=== PATIENT | female | born 1975 | race Caucasian/White ===

== ENCOUNTER → 2021-09-16 09:54 | Outpatient (CLI) | payer OTHER, SELFPAY ==
--- NOTE | ~2021-09-16 | US_ITS ---
EXAMINATION: US transvaginal DATE: 09/16/2021 10:33 INDICATION: Ovarian cysts Comparison:Ultrasound dated 04/07/2019 TECHNIQUE: Multiple transabdominal and endovaginal sonographic images of the pelvis performed. FINDINGS: The uterus measures 8.5 x 3.4 x 4 cm. The endometrial complex measures 3.5 mm. The right ovary measures 1.7 x 1 x 1 cm and the left ovary measures 1.7 x 1.1 x 1.6 cm. There are sm all follicles in each ovary. Normal doppler signal in both ovaries. There is no free fluid in the pelvis. There are no abnormal masses seen on either side. IMPRESSION: 1. Unremarkable pelvic ultrasound. Reviewed, dictated and finalized at location A.
--- NOTE | ~2021-09-16 | MM_ITS ---
EXAMINATION: MM screening [facility] BI w brenda HISTORY: Screening TECHNIQUE: Craniocaudal and mediolateral oblique 3-D tomosynthesis images were obtained and synthetic 2-D images were generated. CAD analysis was submitted and interpreted. COMPARISON: No prior mammogram is available for comparison at this institution. BREAST PARENCHYMAL COMPOSITION: The breasts are extremely dense, which lowers the sensitivity of mamm ography FINDINGS: There are multiple bilateral breast masses scattered throughout both breasts which are obsc ured by dense fibroglandular tissue. There are scattered benign calcifications. No suspicious archite ctural distortion. IMPRESSION: 1. Multiple bilateral breast masses obscured by dense fibroglandular tissue. 2. Recommend bilateral complete breast ultrasound. BI-RADS Category 0: Incomplete: Needs additional imaging evaluation. Reviewed, dictated and finalized at location A.
== END ==
PROVIDERS: PCP Internal Medicine; Visit Provider Nurse Practitioner
DX: N83.202 Unspecified ovarian cyst, left side (principal); Z12.31 Encounter for screening mammogram for malignant neoplasm of breast; R92.8 Other abnormal and inconclusive findings on diagnostic imaging of breast
CPT/HCPCS: 76830; 77063; 77067

== ENCOUNTER 2021-09-23 14:14 | Outpatient (CLI) | payer OTHER, SELFPAY ==
--- NOTE | ~2021-09-23 | US_ITS ---
US breast BI complete DATE: 09/23/2021 14:45 INDICATION: Multiple bilateral breast masses reported on 09/16/2021 bilateral screening mammogram TECHNIQUE: Real-time imaging and color flow imaging of both breasts including all 4 quadrants and sub areolar areas COMPARISON: 09/16/2021 bilateral screening mammogram FINDINGS: Multiple scattered bilateral simple and complicated cysts are noted, the largest on the rig ht situated at 9:00 5 cm from the nipple, measuring 2.4 x 1.2 x 2.7 cm, with no internal echoes, with through transmission and posterior enhancement. The largest on the left is situated at 1:00 3 cm fro m the nipple, measuring up to 1 x 2.6 x 2.3 cm, with no internal echoes, with through transmission po sterior enhancement. Scattered bilateral smaller cysts are noted. . There are some complicated cysts or circumscribed hypoechoic lesions. Hypoechoic lesions include: Right breast 12:00 2 cm from the nipple, measuring 6 x 5.5 x 8, without internal vascularity or poste rior shadowing Right breast 6:00 3 cm from nipple: 4.8 x 3.8 x 4.2 mm hypoechoic lesion with through transmission an d posterior enhancement, no internal vascularity Left breast 12:00 2 cm from nipple: 8.3 x 8.1 x 6.3 mm circumscribed hypoechoic lesion without news intern al vascularity or posterior shadowing 3 left breast:00 5 cm from nipple: 5.2 x 5.3 x 4.9 mm hypoechoic lesion without internal vascularity or posterior shadowing. IMPRESSION: BI-RADS Category 3: Probably benign findings Recommendation: 6 month bilateral complete breast ultrasound follow-up Reviewed, dictated and finalized at [facility]. Reviewed, dictated and finalized at location A.
== END 2021-09-23 14:15 ==
PROVIDERS: PCP Obstetrics & Gynecology Gynecology; Visit Provider Obstetrics & Gynecology Gynecology
DX: R92.8 Other abnormal and inconclusive findings on diagnostic imaging of breast (principal)
CPT/HCPCS: 76641

== ENCOUNTER → 2022-03-28 08:45 | Outpatient (CLI) | payer OTHER, SELFPAY ==
--- NOTE | ~2022-03-28 | US_ITS ---
US breast BI complete DATE: 03/28/2022 09:43 INDICATION: Six-month follow-up of abnormal mammogram TECHNIQUE: Complete bilateral breast ultrasound including all 4 quadrants and subareolar areas COMPARISON: 09/19/2021 bilateral complete breast ultrasound 09/16/2021 bilateral screening mammogram FINDINGS: There are innumerable cysts scattered throughout both breasts, some simple, some septated, some complicated, with the largest on the right measuring up to 3.3 cm at 9:00 4 cm from the nipple, the largest on the left measuring up to 2.7 cm at 1:00 4 cm from nipple. No suspicious mass or shadowing is evident. IMPRESSION: BI-RADS Category 2: Benign findings Recommendation: Routine annual mammographic screening Reviewed, dictated and finalized at Location [facility]. Reviewed, dictated and finalized at location B. 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
== END ==
PROVIDERS: PCP Internal Medicine; Visit Provider Obstetrics & Gynecology Gynecology
DX: N63.10 Unspecified lump in the right breast, unspecified quadrant (principal); N63.20 Unspecified lump in the left breast, unspecified quadrant; R92.8 Other abnormal and inconclusive findings on diagnostic imaging of breast
CPT/HCPCS: 76641

== ENCOUNTER 2023-06-21 14:49 | Outpatient (CLI) | payer OTHER, SELFPAY ==
--- NOTE | ~2023-06-21 | MM_ITS ---
EXAMINATION: MM screening [facility] BI w brenda HISTORY: Screening TECHNIQUE: Craniocaudal and mediolateral oblique 3-D tomosynthesis images were obtained and synthetic 2-D images were generated. CAD analysis was submitted and interpreted. COMPARISON: Comparison to multiple prior studies sequentially, with oldest reviewed study dated 08/2017. BREAST PARENCHYMAL COMPOSITION: Dense: The breasts are extremely dense, which lowers the sensitivity of mammography. FINDINGS: There are multiple bilateral enlarging breast masses which are obscured by dense fibrogland ular tissue. There are no suspicious calcifications. IMPRESSION: 1. Multiple enlarging bilateral breast masses. 2. Complete bilateral breast ultrasound recommended. BI-RADS CATEGORY 0 - INCOMPLETE STUDY, NEED ADDITIONAL IMAGING EVALUATION. Reviewed, dictated and finalized at location A.
== END 2023-06-21 14:50 ==
LOC: MICIMG 14:50
PROVIDERS: PCP Internal Medicine; Visit Provider Nurse Practitioner
DX: Z12.31 Encounter for screening mammogram for malignant neoplasm of breast (principal); R92.8 Other abnormal and inconclusive findings on diagnostic imaging of breast
CPT/HCPCS: 77063; 77067

== ENCOUNTER 2023-08-03 07:37 | Outpatient (CLI) | payer OTHER, SELFPAY ==
--- NOTE | ~2023-08-03 | US_ITS ---
US breast BI complete DATE: 08/03/2023 08:54 INDICATION: Multiple enlarging bilateral breast masses reported on 06/20 cm on 24 screening mammogram TECHNIQUE: Real-time imaging including color flow imaging of both complete breast including all [address] and subareolar area in each breast. COMPARISON: 06/21/2023 bilateral screening mammogram FINDINGS: There are numerous bilateral cystic lesions, some simple, some septated and some complicate d, the largest on the right measuring up to 4.1 cm, situated at 9:00 4.5 cm from nipple. The largest on the left measures up to 3.4 cm, situated 9:00 9 cm from nipple. No suspicious mass, suspicious vascularity or suspicious shadowing is detected in either breast. IMPRESSION: BI-RADS Category 2: Benign EXAMINATION: Routine annual mammographic screening Reviewed, dictated and finalized at Location [facility]. Reviewed, dictated and finalized at location A.
== END 2023-08-03 07:38 ==
LOC: MICIMG 07:39
PROVIDERS: PCP Obstetrics & Gynecology Gynecology; Visit Provider Obstetrics & Gynecology Gynecology
DX: R92.8 Other abnormal and inconclusive findings on diagnostic imaging of breast (principal)
CPT/HCPCS: 76641

== ENCOUNTER 2024-10-07 12:32 | Outpatient (CLI) | payer OTHER, SELFPAY ==
--- NOTE | ~2024-10-07 | MM_ITS ---
EXAMINATION: MM screening [facility] BI w brenda HISTORY: Screening TECHNIQUE: Craniocaudal and mediolateral oblique 3-D tomosynthesis images were obtained and synthetic 2-D images were generated. CAD analysis was submitted and interpreted. COMPARISON: Comparison to multiple prior studies sequentially, with oldest reviewed study dated 2017. BREAST PARENCHYMAL COMPOSITION: Dense: The breasts are extremely dense, which lowers the sensitivity of mammography. FINDINGS: No significant change to bilateral obscured breast masses which were previously characteriz ed as a cyst by ultrasound. There is no evidence of suspicious mass, calcification, or architectural distortion to suggest malignancy in either breast. There has been no suspicious interval change. IMPRESSION: 1. No mammographic evidence of malignancy. 2. Recommend routine screening mammography in one year. BI-RADS Category 2: Benign finding(s). Reviewed, dictated and finalized at location A.
== END 2024-10-07 12:33 | disposition home or self-care (01) ==
LOC: MICIMG 12:33
PROVIDERS: PCP Nurse Practitioner; Visit Provider Nurse Practitioner
DX: Z12.31 Encounter for screening mammogram for malignant neoplasm of breast (principal)
CPT/HCPCS: 77063; 77067